=== PATIENT | male | born 1985 | race American Indian/Alaskan Native ===

== ENCOUNTER 2019-08-25 13:37 | Emergency (ER) | payer SELFPAY ==
[2019-08-25 13:44] VITALS: BP 123/74
--- NOTE | 2019-08-25 14:27 | Emergency Department Report ---
ED Extremity Problem HPI - General Chief complaint: Extremity Injury, Lower Stated complaint: LFT TOE POSS BROKEN/PAIN Time Seen by Provider: 08/25/19 14:21 Source: patient Mode of arrival: Ambulatory Limitations: No Limitations - History of Present Illness Initial comments: 34-year-old -[place] male is well-nourished in no acute distress presen ts to the emergency room complaining of left fifth toe pain x2 days. Patient states that he thinks he is stomping on a dresser. Patient reports he has not taken anything for pain. He did not apply ice. Patient states his pain is a 5 out of 10. MD Complaint: joint swelling, joint paint Onset/Timin -: days(s) Location: left, toe (5th) History of Same: No -: Yes arthralgia Radiation: none Severity scale (0 -10): 5 Quality: aching Consistency: intermittent Improves with: nothing Worsens with: walking Associated Symptoms: denies other symptoms - Related Data Previous Rx's Medication Instructions Recorded Last Taken Type Ibuprofen [Motrin 600 MG tab] 600 mg PO Q8H PRN #30 tablet 08/25/19 Unknown Rx traMADoL [Ultram 50 MG tab] 50 mg PO Q6HR PRN #12 tablet 08/25/19 Unknown Rx Allergies Allergy/AdvReac Type Severity Reaction Status Date / Time No Known Allergies Allergy Unverified 03/15/13 23:10 ED Review of Systems ROS: Stated complaint: LFT TOE POSS BROKEN/PAIN Other details as noted in HPI ED Past Medical Hx - Past Medical History Previous Medical History?: No - Surgical History Past Surgical History?: Yes Hx Cholecystectomy: Yes - Social History Smoking Status: Current Every Day Smoker Substance Use Type: None - Medications Home Medications: Home Medications Medication Instructions Recorded Confirmed Last Taken Type Ibuprofen [Motrin 600 MG tab] 600 mg PO Q8H PRN #30 tablet 08/25/19 Unknown Rx traMADoL [Ultram 50 MG tab] 50 mg PO Q6HR PRN #12 tablet 08/25/19 Unknown Rx ED Physical Exam - General Limitations: No Limitations General appearance: alert, in no apparent distress - Head Head exam: Present: atraumatic, normocephalic - Eye Eye exam: Present: normal appearance - ENT ENT exam: Present: mucous membranes moist - Expanded Lower Extremity Exam Left Hip exam: Present: full ROM Upper Leg exam: Present: normal inspection Knee exam: Present: normal inspection, full ROM Lower Leg exam: Present: normal inspection, full ROM Ankle exam: Present: normal inspection, full ROM Foot/Toe exam: Present: full ROM, tenderness (Fifth digit), tenderness at base of 5th metatarsal. Absent: swelling, ecchymosis, erythema Neuro vascular tendon exam: Present: no vascular compromise - Back Exam Back exam: Present: normal inspection - Neurological Exam Neurological exam: Present: alert, oriented X3 - Psychiatric Psychiatric exam: Present: normal affect, normal mood - Skin Skin exam: Present: warm, dry, intact, normal color. Absent: rash ED Course Vital Signs 08/25/19 13:41 Temperature 98.4 F Pulse Rate 83 Respiratory 16 Rate Blood Pressure 123/74 O2 Sat by Pulse 98 Oximetry ED Medical Decision Making - Radiology Data Radiology results: report reviewed Left forefoot-3 views INDICATION: injury to 5th digit. COMPARISON: None. IMPRESSION: Obliquely oriented extra-articular fracture at the base of the little toe proximal phalanx with slight medial displacement and surrounding soft tissue swelling. No significant DJD. - Medical Decision Making 34-year-old -[place] male is well-nourished in no acute distress presents to the emergency room complaining of left fifth toe pain x2 days. Patient states that he thinks he is stomping on a dresser. Patient reports he has not taken anything for pain. He did not apply ice. Patient states his pain is a 5 out of 10. Fracture left fifth metatarsal. Patient be placed on a anselmo tape crutches and a postop shoe. Patient is to follow-up with orthopedic provider. Critical care attestation.: If time is entered above; I have spent that time in minutes in the direct care of this critically ill patient, excluding procedure time. ED Disposition Clinical Impression: Fracture of fifth metatarsal bone of left foot Disposition: - TO HOME OR SELFCARE Is pt being admited?: No Does the pt Need Aspirin: No Condition: Stable Instructions: Toe Fracture (ED) Additional Instructions: X-ray showed that you fractured your fifth toe on your left foot. You will need to follow-up with orthopedic provider. Use crutches to help ambulate. Pain medication as needed. Prescriptions: Ibuprofen [Motrin 600 MG tab] 600 mg PO Q8H PRN #30 tablet PRN Reason: Pain traMADoL [Ultram 50 MG tab] 50 mg PO Q6HR PRN #12 tablet PRN Reason: Pain Referrals: BACILIO VENEGAS MD [Staff Physician] - 3-5 Days ROSY PIMENTEL MD [Staff Physician] - 3-5 Days Forms: Work/School Release Form(ED)
--- NOTE | 2019-08-25 14:50 | XRay Report ---
Left forefoot-3 views INDICATION: injury to 5th digit. COMPARISON: None. IMPRESSION: Obliquely oriented extra-articular fracture at the base of the little toe proximal phala nx with slight medial displacement and surrounding soft tissue swelling. No significant DJD. Signer Name: Paul Rivera MD Signed: 08/25/2019 2:46 PM Workstation Name: [id number]
== END 2019-08-25 15:46 | disposition home or self-care (01) ==
LOC: ED 13:37
DX: S92.352A Displaced fracture of fifth metatarsal bone, left foot, initial encounter for closed fracture (principal); F17.200 Nicotine dependence, unspecified, uncomplicated; Z90.49 Acquired absence of other specified parts of digestive tract; Z79.1 Long term (current) use of non-steroidal anti-inflammatories (NSAID); Z79.899 Other long term (current) drug therapy; X58.XXXA Exposure to other specified factors, initial encounter; Y93.89 Activity, other specified; Y92.89 Other specified places as the place of occurrence of the external cause; Y99.8 Other external cause status